=== PATIENT | male | born 2000 | race Caucasian/White ===

== ENCOUNTER 2021-10-14 13:19 | Emergency (ER) | payer OTHER ==
[2021-10-14 17:21] LABS: BILIRUBIN - TOTAL 0.3 mg/dL (0.2-1.0); CREATININE 1.07 mg/dL (0.67-1.17); GLOBULIN (CALCULATION) 5.6 g/dL; POTASSIUM 4.6 mmol/L (3.5-5.1); TOTAL PROTEIN 8.6 g/dL (6.4-8.2)
[2021-10-14 17:24] LABS: BASOPHIL 0.6 % (0-2); EOSINOPHIL 0.7 % (0-5); HCT 45.2 % (42.0-52.0); HGB 14.6 g/dl (13.2-18.0); LYMPHOCYTE 16.4 % (15-48); MCH 28.6 pg (25.0-31.0); MCHC 32.3 g/dL (32.0-36.0); MCV 88.6 fL (78.0-100.0); MONOCYTE 7.7 % (0-12); MPV 9.4 fL (6.0-9.5); NRBC 0; PLT 572 K/uL (150-400); WBC 16.7 K/uL (4.0-10.5)
[2021-10-14 17:26] LABS: NEUTROPHIL 68.7 % (41-80)
== END 2021-10-14 19:30 | disposition left against medical advice (07) ==
LOC: FER 13:19
PROVIDERS: Emergency Medicine
DX: G06.1 Intraspinal abscess and granuloma (principal); M86.9 Osteomyelitis, unspecified; Z53.29 Procedure and treatment not carried out because of patient's decision for other reasons
CPT/HCPCS: 36415; 72158; 80053; 85025; A9579; U0002